=== PATIENT | female | born 1965 | race Caucasian/White ===

== ENCOUNTER → 2024-01-04 | Outpatient (CLI) | payer OTHER ==
--- NOTE | 2024-01-04 10:35 | US ---
EXAMINATION TYPE: US abdomen complete DATE OF EXAM: 01/04/2024 COMPARISON: NONE CLINICAL INDICATION: Female, 58 years old with history of R10.9 ABD PAIN; Ruq pain TECHNIQUE: Multiple sonographic images of the abdomen are obtained. FINDINGS: EXAM MEASUREMENTS: Liver Length: 19.5 cm Gallbladder Wall: 0.20 cm CBD: 0.39 cm Spleen: 12.0 x 11.5 x 3.9 cm Right Kidney: 11.3 x 6.0 x 6.2 cm Left Kidney: 11.0 x 5.8 x 4.6 cm FIBER ARTIST NOTES: Pancreas: Limited by overlying bowel gas Liver: Increased attenuation, decreased visualization of vessels suggestive of fatty infiltrate; hep atomegaly Gallbladder: Appears wnl Evidence for sonographic Keith's sign: no CBD: wnl Spleen: wnl Right Kidney: wnl Left Kidney: wnl Upper IVC: wnl Abd Aorta: wnl IMPRESSION: 1. Hepatomegaly correlate for underlying hepatocellular disease or hepatic steatosis.
[2024-01-04 14:45] LABS: Basophils # (A) 0.05 X 10*3/uL (0.00-0.10); Basophils % (A) 0.6 %; Eosinophils # (A) 0.22 X 10*3/uL (0.04-0.35); Eosinophils % (A) 2.7 %; HCT 44.5 % (37.2-46.3); HGB 14.7 g/dL (12.0-15.0); Lymphocytes % (A) 35.5 %; MCH 30.6 pg (27.0-32.0); MCV 92.7 FL (80.0-97.0); Mean Platelet Volume 9.1 FL (9.5-12.2); Monocytes # (A) 0.54 X 10*3/uL (0.20-1.00); Monocytes % (A) 6.6 %; NRBC Per 100 WBC 0 X 10*3/uL (0.00-0.01); Neutrophils # (A) 4.43 X 10*3/uL (1.80-7.70); Neutrophils % (A) 54.2 %; Platelet Count 311 X 10*3/uL (140-440); RDW 11.9 % (11.5-14.5); WBC 8.17 X 10*3/uL (4.50-10.00)
[2024-01-04 15:22] LABS: ALT 32 U/L (8-44); AST 19 U/L (13-35); Albumin 4.6 g/dL (3.8-4.9); Albumin/Globulin Ratio 1.92 Ratio (1.60-3.17); Alkaline Phosphatase 99 U/L (41-126); Amylase 45 U/L (23-121); BUN/Creat Ratio 22.17 Ratio (12.00-20.00); Blood Urea Nitrogen 13.3 mg/dL (9.0-27.0); Calcium 9.5 mg/dL (8.7-10.3); Carbon Dioxide 26.2 mmol/L (21.6-31.8); Chloride 102 mmol/L (96-109); Chol/HDL Ratio 4.17 Ratio; Globulin 2.4 g/dL (1.6-3.3); Glucose 247 mg/dL (70-110); LDL Cholesterol,Calculated 131.3 mg/dL (0.0-131.0); Lipase 47 U/L (14-63); Potassium 4.8 mmol/L (3.5-5.5); Sodium 141 mmol/L (135-145); Total Bilirubin 0.3 mg/dL (0.3-1.2)
[2024-01-04 18:08] LABS: Microalbumin Creatinine Ratio <7 mg/g Cr (0-30)
== END | disposition home or self-care (01) ==
LOC: RADUSWWP 09:20
PROVIDERS: ATTEND Internal Medicine Geriatric Medicine
DX: R16.0 Hepatomegaly, not elsewhere classified (principal); E11.9 Type 2 diabetes mellitus without complications; E78.5 Hyperlipidemia, unspecified; E07.9 Disorder of thyroid, unspecified; K76.0 Fatty (change of) liver, not elsewhere classified
CPT/HCPCS: 76700; 80053; 80061; 82043; 82150; 82306; 82570; 82607; 83036; 83690; 84443; 85025